=== PATIENT | male | born 1955 | race Two or more races ===

== ENCOUNTER → 2016-04-11 | Outpatient (CLI) | payer MEDICARE, MEDICAID ==
[~2016-04-11] MED LIST: FOLI1TAB6 PO; OME20T PO; PROP60CA8 PO; RIFA550T PO; THIA100T27 PO; URSO300C7 PO
[2016-04-11 09:41] LABS: Basophils # (auto) 0 uL; Basophils % (auto) 0.4 % (0.0-2.0); DEFINITIVE VIEW TRANSMISSION; Eosinophils # (auto) 0.3 uL; Eosinophils % (auto) 4.3 % (0.0-7.0); Hematocrit 30.7 % (41.0-53.0); Hemoglobin 10.3 g/dL (13.5-17.5); Lymphocytes % (auto) 34.3 % (10.0-50.0); Mean Corpuscular Hemoglobin 35.1 pg (28.0-32.0); Mean Corpuscular Hgb Conc. 33.6 g/dL (32.0-36.0); Mean Corpuscular Volume 104.3 fL (80.0-100.0); Mean Platelet Volume 10.9 fL (7.4-10.4); Monocytes # (auto) 0.8 uL; Monocytes % (auto) 13.1 % (0.0-12.0); Neutrophils # (auto) 2.8 uL; Neutrophils % (auto) 47.9 % (37.0-80.0); Red Cell Distribution Width 19.7 % (11.6-16.0); SUSPECT VIEW TRANSMISSION; White Blood Cell 5.8 10^3/uL (4.4-10.8)
[2016-04-11 09:49] LABS: Albumin 2.5 g/dL (3.4-5.0); BUN/Creatinine Ratio 19.5; Calcium 8.8 mg/dL (8.5-10.1); Platelet Count (auto) 66 10^3/uL (140-450); Potassium 4.8 mmol/L (3.5-5.1)
[2016-04-11 09:50] LABS: INR 2.96 (0.9-1.15); Prothrombin Time 30.5 sec (9.37-12.3)
[2016-04-11 09:57] LABS: Total Protein 5.5 g/dL (6.4-8.2)
[2016-04-11 10:07] LABS: Anisocytosis Slight; Burr Cells MODERATE; Macrocytosis Slight; Platelet Estimate Decreased
== END | disposition home or self-care (01) ==
LOC: LAB 08:26
PROVIDERS: ATTEND Internal Medicine Gastroenterology
DX: K70.30 Alcoholic cirrhosis of liver without ascites (principal)
CPT/HCPCS: 36415; 80053; 85025; 85610